=== PATIENT | female | born 1955 | race Caucasian/White ===

== ENCOUNTER → 2024-05-26 | Outpatient (CLI) | payer MEDICARE, BC, SELFPAY ==
--- NOTE | 2024-05-26 13:40 | XR_ITS ---
Examination: Bone densitometry Date and time of exam:May 26, 2024 1338 hours INDICATIONS: Hysterectomy age 44 calcium and vitamin D 6 years Technique: Lumbar spine and hip total bone mineralization values of an calculated. Peak reference and age match control results have been displayed. Findings: Lumbar spine total bone mineralization is1.241 gm/cm2. This is 2.4 standard deviations above peak reference. This is 4.2 standard deviations above age-matched controls. Hip total bone mineralization is 0.968 gm/cm2 This is 0.2 standard deviations above peak reference. This is 1.6 standard deviations above age-matched controls Impression: There is normal mineralization based on lumbar spine measurements. There is normal mineralization based on hip measurements Lumbar mineralization is increased 2.5% compared with May 22, 2021 Hip mineralization is increase 0.1% compared with May 22, 2021
== END | disposition home or self-care (01) ==
PROVIDERS: PCP Family Medicine; Referring Provider Family Medicine; Visit Provider Family Medicine
DX: M81.0 Age-related osteoporosis without current pathological fracture (principal)
CPT/HCPCS: 77080

== ENCOUNTER → 2025-04-04 | Outpatient (CLI) | payer MEDICARE, BC, SELFPAY ==
--- NOTE | 2025-04-04 09:41 | XR_ITS ---
Examination: Shoulder, right, 3 views Technique: Shoulder AP internal rotation, AP external rotation, Y view shoulder, 3 views Exam date and time : April 04, 2025, 1014 hours INDICATION: Right shoulder pain beginning 3 months ago. FINDINGS: Mild narrowing glenohumeral joint No shoulder fracture or dislocation No AC joint separation Minimal soft tissue calcific tendinitis IMPRESSION: Mild narrowing glenohumeral joint Minimal calcific tendinitis
== END | disposition home or self-care (01) ==
LOC: CDIM 09:18
PROVIDERS: PCP Family Medicine; Referring Provider Family Medicine; Visit Provider Family Medicine
DX: M75.31 Calcific tendinitis of right shoulder (principal); M25.811 Other specified joint disorders, right shoulder
CPT/HCPCS: 73030